=== PATIENT | female | born 1985 | race Caucasian/White ===

== ENCOUNTER 2018-03-30 05:21 | Emergency (ER) | payer MEDICAID ==
[2018-03-30] MEDS: KETOROLAC 60 MG INJ IM (06:47)
== END 2018-03-30 07:35 | disposition home or self-care (01) ==
LOC: FTE 05:21
DX: S49.91XA Unspecified injury of right shoulder and upper arm, initial encounter (principal); Y09 Assault by unspecified means; Y92.9 Unspecified place or not applicable
CPT/HCPCS: 29130; 73030-RT; 73080-RT; 73140; 81025; 96372; 99284-25

== ENCOUNTER 2018-05-23 20:38 | Emergency (ER) | payer MEDICAID ==
[2018-05-23] MEDS: ONDANSETRON (ODT) 4 MG TAB ODT (21:20)
[2018-05-23 21:41] LABS: ADD MAN DIFF? NO
[2018-05-23 21:42] LABS: BASOPHILS % 0.3 % (0.0-2.0); EOSINOPHILS # 0.2 10^3/ul (0.0-0.5); EOSINOPHILS % 1.6 % (0.0-7.0); HEMATOCRIT 37.5 % (37.0-47.0); HEMOGLOBIN 12.2 g/dl (12.0-16.0); LYMPHOCYTES # 2.1 10^3/ul (0.8-2.9); LYMPHOCYTES % 19.1 % (15.0-51.0); MEAN CORPUSCULAR HEMOGLOBIN 26.8 pg (29.0-33.0); MEAN CORPUSCULAR HGB CONC 32.5 g/dl (32.0-37.0); MEAN CORPUSCULAR VOLUME 82.4 fl (82.0-101.0); MEAN PLATELET VOLUME 9.3 fl (7.4-10.4); MONOCYTES % 9.1 % (0.0-11.0); NEUTROPHIL # 7.5 10^3/ul (1.6-7.5); NEUTROPHILS % 69.7 % (39.0-77.0); PLATELET COUNT 307 10^3/UL (140-415); RED BLOOD COUNT 4.55 10^6/ul (4.20-5.40); RED CELL DISTRIBUTION WIDTH 14.9 % (11.5-14.5)
[2018-05-23 21:42] LABS: WHITE BLOOD COUNT 10.8 10^3/ul (4.8-10.8)
[2018-05-23 22:06] LABS: ADD UMIC YES; UR ASCORBIC ACID NEGATIVE (NEGATIVE); UR BACTERIA FEW /HPF (NONE SEEN); UR BILIRUBIN (Dip) NEGATIVE (NEGATIVE); UR BLOOD (Dip) 1+ mg/dL (NEGATIVE); UR CLARITY SLIGHTLY CLOUDY (CLEAR); UR COLOR YELLOW (YELLOW); UR GLUCOSE (Dip) NEGATIVE (NEGATIVE); UR KETONES (Dip) NEGATIVE (NEGATIVE); UR LEUKOCYTE ESTERASE (Dip) NEGATIVE Leu/ul (NEGATIVE); UR MUCUS FEW /HPF (NONE SEEN); UR NITRITE (Dip) NEGATIVE (NEGATIVE); UR RBC 0 /HPF (0-5); UR SPECIFIC GRAVITY (Dip) 1.021 (1.003-1.030); UR SQUAMOUS EPITHELIAL CELL MODERATE /HPF (FEW); UR TOTAL PROTEIN (Dip) NEGATIVE (NEGATIVE); UR UROBILINOGEN (Dip) NEGATIVE (NEGATIVE); UR WBC 3 /HPF (0-5)
== END 2018-05-23 23:15 | disposition home or self-care (01) ==
LOC: FTE 20:38
DX: O98.511 Other viral diseases complicating pregnancy, first trimester (principal); O34.81 Maternal care for other abnormalities of pelvic organs, first trimester; A08.4 Viral intestinal infection, unspecified; N83.202 Unspecified ovarian cyst, left side; O41.8X10 Other specified disorders of amniotic fluid and membranes, first trimester, not applicable or unspecified; O46.8X1 Other antepartum hemorrhage, first trimester; Z3A.09 9 weeks gestation of pregnancy
CPT/HCPCS: 36415; 76801; 76817; 81001; 81025; 84702; 85025; 86900; 86901; 99284-25

== ENCOUNTER 2018-07-04 19:58 | Emergency (ER) | payer MEDICAID ==
[2018-07-04] MEDS: ACETAMINOPHEN 325 MG TAB PO (21:43)
[2018-07-04 21:53] LABS: ADD MAN DIFF? NO
[2018-07-04 22:05] LABS: BASOPHILS % 0.3 % (0.0-2.0); EOSINOPHILS # 0.1 10^3/ul (0.0-0.5); EOSINOPHILS % 1.2 % (0.0-7.0); HEMATOCRIT 36.4 % (37.0-47.0); HEMOGLOBIN 12.2 g/dl (12.0-16.0); IMMATURE GRANS #M 0.04 10^3/ul; IMMATURE GRANS % (M) 0.4 %; LYMPHOCYTES # 2.3 10^3/ul (0.8-2.9); MEAN CORPUSCULAR HEMOGLOBIN 27.5 pg (29.0-33.0); MEAN CORPUSCULAR HGB CONC 33.5 g/dl (32.0-37.0); MEAN CORPUSCULAR VOLUME 82.2 fl (82.0-101.0); MEAN PLATELET VOLUME 9.5 fl (7.4-10.4); MONOCYTE # 0.8 10^3/ul (0.3-0.9); NEUTROPHIL # 7.2 10^3/ul (1.6-7.5); NEUTROPHILS % 68.1 % (39.0-77.0); PLATELET COUNT 311 10^3/UL (140-415); RED BLOOD COUNT 4.43 10^6/ul (4.20-5.40); RED CELL DISTRIBUTION WIDTH 14.8 % (11.5-14.5)
[2018-07-04 22:05] LABS: WHITE BLOOD COUNT 10.6 10^3/ul (4.8-10.8)
[2018-07-04 22:20] LABS: ADD UMIC YES; UR ASCORBIC ACID NEGATIVE (NEGATIVE); UR BACTERIA MODERATE /HPF (NONE SEEN); UR BILIRUBIN (Dip) NEGATIVE (NEGATIVE); UR BLOOD (Dip) NEGATIVE (NEGATIVE); UR CLARITY SLIGHTLY CLOUDY (CLEAR); UR COLOR YELLOW (YELLOW); UR GLUCOSE (Dip) NEGATIVE (NEGATIVE); UR KETONES (Dip) NEGATIVE (NEGATIVE); UR LEUKOCYTE ESTERASE (Dip) 1+ Leu/ul (NEGATIVE); UR NITRITE (Dip) NEGATIVE (NEGATIVE); UR RBC 1 /HPF (0-5); UR SPECIFIC GRAVITY (Dip) 1.012 (1.003-1.030); UR SQUAMOUS EPITHELIAL CELL FEW /HPF (FEW); UR TOTAL PROTEIN (Dip) NEGATIVE (NEGATIVE); UR UROBILINOGEN (Dip) NEGATIVE (NEGATIVE); UR WBC 2 /HPF (0-5)
[2018-07-04] MEDS: CEPHALEXIN 500 MG CAP PO (23:21)
[2018-07-05 13:13] LABS: UR MUCUS FEW /HPF (NONE SEEN)
[2018-07-05 13:15] LABS: UR CALCIUM OXALATE CRYSTAL MANY /HPF (NONE SEEN)
== END 2018-07-04 23:30 | disposition home or self-care (01) ==
LOC: FTE 19:58
DX: O26.891 Other specified pregnancy related conditions, first trimester (principal); R10.2 Pelvic and perineal pain; Z3A.14 14 weeks gestation of pregnancy
CPT/HCPCS: 36415; 76801; 81001; 81025; 84702; 85025; 86900; 86901; 87086; 99284-25

== ENCOUNTER 2018-12-18 03:45 | Inpatient (IN) | payer MEDICAID ==
[2018-12-18] MEDS ORDERED: OXYTOCIN 30 UNITS/LR 500 ML IV ×4 (05:00→15:30)
[2018-12-18] MEDS ORDERED: LIDOCAINE 1% (MPF) 30 ML INJ INJ (05:00)
[2018-12-18] MEDS ORDERED: CARBOPROST 250 MCG INJ IM ×3 (05:00→15:30)
[2018-12-18] MEDS ORDERED: MISOPROSTOL 200 MCG TAB PR ×3 (05:00→15:30)
[2018-12-18] MEDS ORDERED: BUTORPHANOL 2 MG INJ IV (05:00)
[2018-12-18] MEDS ORDERED: METHYLERGONOVINE 0.2 MG INJ IM ×3 (05:00→15:30)
[2018-12-18] MEDS: LACTATED RINGER'S 1,000 ML IV ×3 (05:28→12:23)
[2018-12-18 05:56] LABS: ADD MAN DIFF? NO
[2018-12-18 06:17] LABS: BASOPHILS % 0.4 % (0.0-2.0); EOSINOPHILS # 0.1 10^3/ul (0.0-0.5); EOSINOPHILS % 0.7 % (0.0-7.0); HEMATOCRIT 37.6 % (37.0-47.0); HEMOGLOBIN 12.4 g/dl (12.0-16.0); MEAN CORPUSCULAR HEMOGLOBIN 27.9 pg (29.0-33.0); MEAN CORPUSCULAR VOLUME 84.5 fl (82.0-101.0); MEAN PLATELET VOLUME 10.4 fl (7.4-10.4); MONOCYTE # 0.9 10^3/ul (0.3-0.9); MONOCYTES % 8.6 % (0.0-11.0); NEUTROPHIL # 7.9 10^3/ul (1.6-7.5); NEUTROPHILS % 72.1 % (39.0-77.0); PLATELET COUNT 250 10^3/UL (140-415); RED BLOOD COUNT 4.45 10^6/ul (4.20-5.40); RED CELL DISTRIBUTION WIDTH 13.3 % (11.5-14.5)
[2018-12-18] MEDS ORDERED: FENTAnyl 2MCG/ML-ROPIV 0.2% 100 ML (06:24)
[2018-12-18 06:26] LABS: INR 0.89; PROTIME 12.2 Sec (11.9-14.9)
[2018-12-18 06:27] LABS: PARTIAL THROMBOPLASTIN TIME 26.4 Sec (23.0-35.0)
[2018-12-18] MEDS ORDERED: ONDANSETRON 4 MG INJ IV ×3 (06:30→10:00)
[2018-12-18] MEDS ORDERED: DIPHENHYDRAMINE 50 MG INJ IV ×3 (06:30→10:00)
[2018-12-18] MEDS ORDERED: NALOXONE (0.4 MG/ML) INJ IV ×2 (06:30→10:00)
[2018-12-18] MEDS ORDERED: FENTAnyl 2MCG/ML-ROPIV 0.2% 100 ML BAG EPI (06:30)
[2018-12-18 06:38] LABS: URIC ACID 5.1 mg/dl (3.1-7.9)
[2018-12-18 07:09] LABS: HEPATITIS B SURFACE ANTIGEN NEGATIVE (NEGATIVE)
[2018-12-18 07:50] LABS: ALBUMIN 3.5 g/dl (3.3-4.9); ALBUMIN/GLOBULIN RATIO 0.94; ALKALINE PHOSPHATASE 188 IU/L (42-121); ANION GAP 12 (5-13); ASPARTATE AMINO TRANSFERASE 27 IU/L (15-46); BLOOD UREA NITROGEN 12 mg/dl (7-20); CALCIUM 9.4 mg/dl (8.4-10.2); CARBON DIOXIDE 20 mmol/L (21-31); CHLORIDE 107 mmol/L (97-110); CREATININE 0.58 mg/dl (0.44-1.00); Estimated GFR > 60 mL/min (>60); GLUCOSE 95 mg/dl (70-220); POTASSIUM 3.9 mmol/L (3.5-5.1); SODIUM 139 mmol/L (135-144); TOTAL PROTEIN 7.2 g/dl (6.1-8.1)
[2018-12-18 07:53] LABS: ALANINE AMINOTRANSFERASE < 6 IU/L (13-69)
[2018-12-18 09:06] LABS: ADD UMIC NO; UR ASCORBIC ACID NEGATIVE (NEGATIVE); UR BILIRUBIN (Dip) NEGATIVE (NEGATIVE); UR BLOOD (Dip) NEGATIVE (NEGATIVE); UR CLARITY CLEAR (CLEAR); UR COLOR YELLOW (YELLOW); UR GLUCOSE (Dip) NEGATIVE (NEGATIVE); UR KETONES (Dip) NEGATIVE (NEGATIVE); UR LEUKOCYTE ESTERASE (Dip) NEGATIVE Leu/ul (NEGATIVE); UR NITRITE (Dip) NEGATIVE (NEGATIVE); UR SPECIFIC GRAVITY (Dip) 1.009 (1.003-1.030); UR TOTAL PROTEIN (Dip) NEGATIVE (NEGATIVE); UR UROBILINOGEN (Dip) NEGATIVE (NEGATIVE)
[2018-12-18] MEDS: ONDANSETRON 4 MG INJ IV (09:31)
[2018-12-18] MEDS ORDERED: morphine SULFATE/PF (10 MG/10 ML) INJ (09:41)
[2018-12-18] MEDS ORDERED: OXYTOCIN 10 UNIT INJ (09:42)
[2018-12-18] MEDS ORDERED: LIDOCAINE 1.5%/EPI MPF (SDV) 30 ML VIAL (09:42)
[2018-12-18] MEDS ORDERED: ZOLPIDEM 5 MG TAB PO ×2 (10:00→15:30)
[2018-12-18] MEDS ORDERED: LEVALBUTEROL (NEB) 1.25 MG/0.5 ML AMP HHN (10:00)
[2018-12-18] MEDS ORDERED: hydrALAzine 20 MG INJ IV (10:00)
[2018-12-18] MEDS ORDERED: LABETALOL HCL 20MG INJ IV (10:00)
[2018-12-18] MEDS: METOCLOPRAMIDE 10 MG INJ IV (10:00)
[2018-12-18] MEDS ORDERED: KETOROLAC 30 MG INJ IV ×2 (10:00)
[2018-12-18] MEDS ORDERED: FENTAnyl 50 MCG/ML VIAL IV (10:00)
[2018-12-18] MEDS ORDERED: HYDROmorphONE 1 MG/5 ML IV SYRINGE IV ×3 (10:00)
[2018-12-18] MEDS: FAMOTIDINE 20 MG INJ IV (10:00)
[2018-12-18] MEDS ORDERED: HYDROmorphONE 0.5 MG/0.5 ML SYG IV ×2 (10:00)
[2018-12-18] MEDS: MINERAL OIL LIGHT 10 ML VIAL TOP (12:50)
[2018-12-18] MEDS: OXYTOCIN 30 UNITS/LR 500 ML IV ×2 (12:52→12:54)
[2018-12-18] MEDS: KETOROLAC 30 MG INJ IM (13:36)
[2018-12-18] MEDS: CEFAZOLIN 2 GM/50 ML (PMX) 50 ML IVPB (13:37)
[2018-12-18] MEDS: IBUPROFEN 600 MG TAB PO ×3 (13:50→23:25)
[2018-12-18] MEDS: LACTATED RINGER'S 1,000 ML IV* (15:29)
[2018-12-18] MEDS ORDERED: HYDROCODONE/APAP (5/325) TAB PO (15:30)
[2018-12-18] MEDS ORDERED: DIBUCAINE 1% 30 GM OINT TOP (15:30)
[2018-12-18 16:23] LABS: RAPID PLASMA REAGIN NONREACTIVE (NR)
[2018-12-18] MEDS: CEPHALEXIN 500 MG CAP PO ×2 (17:48→23:25)
[2018-12-18] MEDS: MAGNESIUM HYDROXIDE 30ML CUP PO (20:56)
[2018-12-18] MEDS: BENZOCAINE 20% 56 ML SPRAY TOP (20:56)
[2018-12-18] MEDS: WITCH HAZEL/GLYCERIN PAD PR (20:56)
[2018-12-18] MEDS: LANOLIN HPA 1 PKT TOP (20:56)
[2018-12-18] MEDS: SENNA/DOCUSATE NA (8.6MG/50MG) TAB PO (20:56)
[2018-12-19] MEDS: CEPHALEXIN 500 MG CAP PO ×3 (05:52→18:09)
[2018-12-19] MEDS: IBUPROFEN 600 MG TAB PO ×3 (05:52→18:10)
[2018-12-19 07:40] LABS: ADD MAN DIFF? NO
[2018-12-19 07:42] LABS: BASOPHIL # 0.1 10^3/ul (0.0-0.1); BASOPHILS % 0.5 % (0.0-2.0); EOSINOPHILS # 0.1 10^3/ul (0.0-0.5); EOSINOPHILS % 1.1 % (0.0-7.0); HEMATOCRIT 33.2 % (37.0-47.0); HEMOGLOBIN 10.8 g/dl (12.0-16.0); LYMPHOCYTES # 2.4 10^3/ul (0.8-2.9); LYMPHOCYTES % 23.5 % (15.0-51.0); MEAN CORPUSCULAR HGB CONC 32.5 g/dl (32.0-37.0); MEAN PLATELET VOLUME 10.8 fl (7.4-10.4); MONOCYTE # 0.8 10^3/ul (0.3-0.9); MONOCYTES % 8.1 % (0.0-11.0); NEUTROPHIL # 6.9 10^3/ul (1.6-7.5); NEUTROPHILS % 66.5 % (39.0-77.0); PLATELET COUNT 218 10^3/UL (140-415); RED BLOOD COUNT 3.86 10^6/ul (4.20-5.40); RED CELL DISTRIBUTION WIDTH 13.6 % (11.5-14.5)
[2018-12-19 07:42] LABS: WHITE BLOOD COUNT 10.3 10^3/ul (4.8-10.8)
[2018-12-19] MEDS: MAGNESIUM HYDROXIDE 30ML CUP PO ×2 (09:23→22:47)
[2018-12-19] MEDS: SENNA/DOCUSATE NA (8.6MG/50MG) TAB PO ×2 (09:23→22:47)
[2018-12-19] MEDS: HYDROCODONE/APAP (5/325) TAB PO (22:47)
[2018-12-20] MEDS: CEPHALEXIN 500 MG CAP PO ×2 (00:47→05:32)
[2018-12-20] MEDS: IBUPROFEN 600 MG TAB PO ×2 (05:32)
[2018-12-20] MEDS: MAGNESIUM HYDROXIDE 30ML CUP PO (09:00)
[2018-12-20] MEDS: SENNA/DOCUSATE NA (8.6MG/50MG) TAB PO (09:00)
[2018-12-20] MEDS: VARICELLA VACCINE LIVE/PF 1,350 UNIT/0.5 ML ML SC* (09:17)
[2018-12-20] MEDS: DIPHTH/TET/ACEL PERTUSS (ADULT) 0.5 ML VIAL IM* (09:17)
[2018-12-20] MEDS: MEASLES,MUMPS,RUBELLA VACCINE INJ SC* (09:17)
== END 2018-12-20 11:45 | disposition home or self-care (01) | DRG 807 ==
LOC: OBT 03:45 → L-D 03:45 → OBT 04:20 → L-D 04:20 → PP1 14:30
PROVIDERS: Obstetrics & Gynecology
PROC: 10E0XZZ Delivery of Products of Conception, External Approach (ICD-10-PCS; principal; 2018-12-18)
PROC: 0UQKXZZ Repair Hymen, External Approach (ICD-10-PCS; 2018-12-18)
DX: O69.81X0 Labor and delivery complicated by cord around neck, without compression, not applicable or unspecified (principal); Z37.0 Single live birth; O77.0 Labor and delivery complicated by meconium in amniotic fluid; O70.0 First degree perineal laceration during delivery; O34.219 Maternal care for unspecified type scar from previous cesarean delivery; Z3A.38 38 weeks gestation of pregnancy
CPT/HCPCS: 62319; 76815; 80053; 81003; 84560; 85025; 85610; 85730; 86592; 86850; 86900; 86901; 87340; 99464

== ENCOUNTER 2019-05-09 14:28 | Emergency (ER) | payer MEDICAID ==
[2019-05-09] MEDS: IBUPROFEN 600 MG TAB PO (15:13)
[2019-05-09] MEDS: PENICILLIN G BENZ 1.2 MIL UNIT SYG IM (15:19)
[2019-05-09 16:26] LABS: ADD UMIC NO; UR ASCORBIC ACID NEGATIVE (NEGATIVE); UR BILIRUBIN (Dip) NEGATIVE (NEGATIVE); UR BLOOD (Dip) NEGATIVE (NEGATIVE); UR CLARITY CLEAR (CLEAR); UR COLOR YELLOW (YELLOW); UR GLUCOSE (Dip) NEGATIVE (NEGATIVE); UR KETONES (Dip) NEGATIVE (NEGATIVE); UR LEUKOCYTE ESTERASE (Dip) NEGATIVE Leu/ul (NEGATIVE); UR NITRITE (Dip) NEGATIVE (NEGATIVE); UR SPECIFIC GRAVITY (Dip) 1.014 (1.003-1.030); UR TOTAL PROTEIN (Dip) NEGATIVE (NEGATIVE); UR UROBILINOGEN (Dip) NEGATIVE (NEGATIVE)
== END 2019-05-09 17:30 | disposition home or self-care (01) ==
LOC: FTE 14:28
DX: J00 Acute nasopharyngitis [common cold] (principal)
CPT/HCPCS: 81003; 96372; 99284-25